=== PATIENT | male | born 1960 | race Caucasian/White ===

== ENCOUNTER 2016-12-08 11:26 | Inpatient (IN) | payer OTHER ==
[~2016-12-08] VITALS: Ht 177.8 cm; Wt 98.6 kg
[~2016-12-08 11:26] MED LIST: ALBUTEROL INHALER; ALEVE LIQUID G220 MG PO; ATORVASTATIN CA20 MG PO; Ascorbic Acid PO; Atrovent HFA Inhaler IH; BACTRIM,SEPT1 TABLET PO; CARVEDILOL6.25 MG PO; CENTRUM SILVER1 EAC3 PO; CLARITIN10 M3 OP; CLEOCIN300 MG PO; Coumadin,Jantoven PO; DULERA 200 MCG/13 GM IH; Ecotrin PO; FLOVENT 22120 INHALA IH; FLUOXETINE HCL20 MG PO; FOLIC ACID1 MG PO; FORMULA E400 UNIT PO; Folvite PO; Hibiclens TP; KEFLEX500 MG PO; LASIX40 MG PO; LEVOTHYROXINE25 MCG PO; LISINOPRIL; LISINOPRIL PO; LISINOPRIL20 MG PO; LORATADINE; Levothroid,Synthroid PO; MOTRIN400 M1 PO; NOHOMEMEDS; PROVENTIL HFA6.7 GM IH; Proventil,Ventolin H IH; REXULTI0.25 MG PO; Santyl TP; THERAGRAN1 TABLET PO; THIAMINE,VITAM100 MG PO; TRAMADOL HCL50 MG PO; Tirosint PO; VITAMIN C WIT1000 MG PO; VITAMIN E400 UNIT PO; Vitamin-E PO; WARFARIN PO; ZANTAC150 MG PO; bactrim PO
[2016-12-08 12:09] LABS: EOSINOPHIL COUNT 0.1 K/uL (0-0.3); IMMATURE GRANULOCYTE (%) 0.2 % (0.0-0.7); IMMATURE GRANULOCYTE COUNT 0.2 K/uL; LYMPHOCYTE COUNT 1.5 K/uL (1.0-2.8); MCH 31.5 PG (29.0-34.0); MCHC 32.6 G/DL (30.0-36.0); MCV 96.4 FL (86-99); MONOCYTE (%) 8.3 % (3-12); MONOCYTE COUNT 0.7 K/uL (0-0.8); NEUTROPHIL (%) 73.7 % (45-76); NEUTROPHIL COUNT 6.5 K/uL (1.8-6.4); PLATELET COUNT 216 K/uL (156-360); RED BLOOD COUNT 3.94 M/uL (4.00-5.50); WHITE BLOOD COUNT 8.8 K/uL (4.1-10.2)
[2016-12-08 12:18] LABS: CHLORIDE 107 mEq/L (99-109)
[2016-12-08 12:19] LABS: SODIUM 139 mEq/L (136-147)
[2016-12-08 12:21] LABS: GLUCOSE 103 mg/dL (70-99)
[2016-12-08 12:22] LABS: ANION GAP 9 MEQ/L (2-14)
[2016-12-08 12:23] LABS: TOTAL BILIRUBIN 1.9 mg/dL (0.0-1.0)
[2016-12-08 12:24] LABS: ALKALINE PHOSPHATASE 115 IU/L (3-129); GFR ESTIMATE (CALCULATED) > 59 mL/min/
[2016-12-08 12:26] LABS: UREA NITROGEN (BUN) 9 mg/dL (9-23)
[2016-12-08 13:06] LABS: TROP-I INTERPRETATION NEGATIVE; TROPONIN-I 0.04 ng/mL (0.0-0.30)
[2016-12-08 13:54] LABS: TROP-I INTERPRETATION NEGATIVE; TROPONIN-I 0.05 ng/mL (0.0-0.30)
[2016-12-08 16:19] LABS: ADD MIUA? NO; BILIRUBIN NEGATIVE; BLOOD NEGATIVE; COLOR YELLOW ((YELLOW)); GLUCOSE (STRIP) NEGATIVE; KETONES NEGATIVE; LEUKOCYTES NEGATIVE; NITRITE NEGATIVE; PROTEIN (STRIP) NEGATIVE; SPECIFIC GRAVITY 1.009 (1.000-1.030); UCUL ADDED? NO; UROBILINOGEN 0.2 MG/DL (0.2-1.0)
[2016-12-08] MEDS ORDERED: ALEVE220 MG PO (17:03)
[2016-12-08] MEDS ORDERED: B POLLEN PO (17:07)
[2016-12-08] MEDS ORDERED: VITAMIN C WIT1000 MG PO (17:09)
[2016-12-08] MEDS ORDERED: IMODIUM A-D2 M2 PO (17:10)
[2016-12-08] MEDS ORDERED: VITAMIN E400 UNIT PO (17:11)
[2016-12-08] MEDS ORDERED: [UNRECOGNIZED DRUG - CODE] PO (17:12)
[2016-12-08] MEDS ORDERED: CENTRUM COMPLE1 EACH PO (17:12)
[2016-12-08] MEDS ORDERED: [UNRECOGNIZED DRUG - OTHER] PO (17:14)
[2016-12-08] MEDS ORDERED: ZANTAC150 MG PO (17:14)
[2016-12-08] MEDS ORDERED: MUCINEX1200 MG PO (17:15)
[2016-12-08] MEDS ORDERED: HALLS7.5 MG MM (17:16)
[2016-12-08] MEDS ORDERED: DULERA 200 MCG/13 GM IH (17:17)
[2016-12-08] MEDS ORDERED: VENTOLIN HFA18 GM IH (17:17)
[2016-12-08 20:28] VITALS: BP 138/89
[2016-12-08 20:33] LABS: TROP-I INTERPRETATION NEGATIVE; TROPONIN-I 0.04 ng/mL (0.0-0.30)
[2016-12-09] VITALS: BP 153/93
[2016-12-09 02:45] LABS: TROP-I INTERPRETATION NEGATIVE; TROPONIN-I 0.05 ng/mL (0.0-0.30)
[2016-12-09 04:00] VITALS: BP 149/97
[2016-12-09 04:18] LABS: METH RESISTANT S AUREUS PCR NEGATIVE (NEGATIVE)
[2016-12-09 04:20] LABS: PROBE CHECK PASS; SPECIMEN PROCESSING CONTROL PASS
[2016-12-09 07:15] LABS: Estimated Average Glucose 94 mg/dL (70-123); HEMOGLOBIN A1c (GLYCOHEMOGLOB) 4.9 % HGB (Below 5.7)
[2016-12-09 07:33] LABS: ANION GAP 9 MEQ/L (2-14); CHLORIDE 103 MEQ/L (99-109); GFR ESTIMATE (CALCULATED) > 59 mL/min/; GLUCOSE 90 mg/dL (70-99); HDL CHOLESTEROL 20 MG/DL (Desirable>=40); LDL CHOLESTEROL 70 mg/dL (Desirable<100); NON-HDL CHOLESTEROL 94 mg/dL (Desirable<160); POTASSIUM 3.5 MEQ/L (3.7-5.4); SAMPLE HEMOLYSIS CHECK 0; SAMPLE ICTERIC CHECK 0; SAMPLE LIPEMIA CHECK 0; SODIUM 138 MEQ/L (136-147); TOTAL CHOLESTEROL 114 mg/dL (Desirable<200); TRIGLYCERIDES 118 MG/DL (Normal: <150); UREA NITROGEN (BUN) 14 mg/dL (9-23)
[2016-12-09] MEDS ORDERED: PROTONIX40 MG PO (07:59)
[2016-12-09 09:00] VITALS: BP 168/106
[2016-12-09 12:14] VITALS: BP 134/98
[2016-12-09 20:00] VITALS: BP 120/82
[2016-12-09 23:34] VITALS: BP 137/60
[2016-12-10] VITALS (7 sets, daily range): BP systolic 114–134; BP diastolic 62–92
[2016-12-10 10:57] LABS: ANION GAP 7 MEQ/L (2-14); CHLORIDE 101 MEQ/L (99-109); SAMPLE HEMOLYSIS CHECK 0; SAMPLE ICTERIC CHECK 0; SAMPLE LIPEMIA CHECK 0; SODIUM 136 MEQ/L (136-147)
[2016-12-10 10:58] LABS: POTASSIUM 4.6 MEQ/L (3.7-5.4)
[2016-12-10 11:05] LABS: GFR ESTIMATE (CALCULATED) > 59 mL/min/; GLUCOSE 110 mg/dL (70-99); UREA NITROGEN (BUN) 18 mg/dL (9-23)
[2016-12-11 03:03] VITALS: BP 140/64
[2016-12-11 06:07] LABS: HEMATOCRIT 41.1 % (38.0-50.0); MCH 31.3 PG (29.0-34.0); MCHC 31.6 G/DL (30.0-36.0); MEAN PLAT.VOLUME 11.8 uM^3 (9.0-12.4); PLATELET COUNT 245 K/uL (156-360); RBC DIS.WIDTH-CV 14.9 % (11.8-14.6); RBC DIS.WIDTH-SD 53.9 % (39-53); RED BLOOD COUNT 4.15 M/uL (4.00-5.50); WHITE BLOOD COUNT 9.5 K/uL (4.1-10.2)
[2016-12-11 06:28] LABS: ANION GAP 8 MEQ/L (2-14); CHLORIDE 100 MEQ/L (99-109); GFR ESTIMATE (CALCULATED) > 59 mL/min/; GLUCOSE 104 mg/dL (70-99); MAGNESIUM 2.1 mg/dl (1.3-2.7); POTASSIUM 4.8 MEQ/L (3.7-5.4); SAMPLE HEMOLYSIS CHECK 0; SAMPLE ICTERIC CHECK 0; SAMPLE LIPEMIA CHECK 0; SODIUM 136 MEQ/L (136-147); UREA NITROGEN (BUN) 24 mg/dL (9-23)
[2016-12-11 07:55] VITALS: BP 140/98
[2016-12-11] MEDS ORDERED: DULERA 100 MCG/13 GM IH (08:23)
[2016-12-11 11:51] VITALS: BP 136/82
[2016-12-11 16:14] VITALS: BP 127/87
[2016-12-11 20:21] VITALS: BP 124/82
[2016-12-12 00:12] VITALS: BP 132/89
[2016-12-12 04:42] VITALS: BP 128/84
[2016-12-12 07:33] LABS: ANION GAP 8 MEQ/L (2-14); CHLORIDE 97 MEQ/L (99-109); GFR ESTIMATE (CALCULATED) > 59 mL/min/; GLUCOSE 88 mg/dL (70-99); POTASSIUM 4.3 MEQ/L (3.7-5.4); SAMPLE HEMOLYSIS CHECK 0; SAMPLE ICTERIC CHECK 0; SAMPLE LIPEMIA CHECK 0; SODIUM 135 MEQ/L (136-147); UREA NITROGEN (BUN) 23 mg/dL (9-23)
[2016-12-12 07:36] VITALS: BP 132/88
[2016-12-12] MEDS ORDERED: CARVEDILOL6.25 MG PO (12:31)
[2016-12-12] MEDS ORDERED: LOSARTAN POTASS50 MG PO (12:31)
[2016-12-12] MEDS ORDERED: FUROSEMIDE20 MG PO (12:38)
[2016-12-12] MEDS ORDERED: LASIX20 MG PO (12:48)
== END 2016-12-12 14:48 | disposition home health service (06) | DRG 292 ==
LOC: EME 11:26 → EDOF 16:16 → 5WEST 16:16 → EDOF 16:16 → 5WEST 19:27 → 4SOUTH 12-09 12:36
PROVIDERS: Emergency Medicine; Internal Medicine; Physician Assistant; Student in an Organized Health Care Education/Training Program
DX: I50.23 Acute on chronic systolic (congestive) heart failure (principal); I42.0 Dilated cardiomyopathy; I47.2 Ventricular tachycardia; I11.0 Hypertensive heart disease with heart failure; J45.909 Unspecified asthma, uncomplicated; Z91.128 Patient's intentional underdosing of medication regimen for other reason; E73.8 Other lactose intolerance; I44.7 Left bundle-branch block, unspecified; J98.4 Other disorders of lung; R09.89 Other specified symptoms and signs involving the circulatory and respiratory systems; G47.33 Obstructive sleep apnea (adult) (pediatric); F60.9 Personality disorder, unspecified; Z60.2 Problems related to living alone; F39 Unspecified mood [affective] disorder; I27.2 Other secondary pulmonary hypertension; I34.0 Nonrheumatic mitral (valve) insufficiency; I36.1 Nonrheumatic tricuspid (valve) insufficiency; E66.9 Obesity, unspecified; Z68.33 Body mass index [BMI] 33.0-33.9, adult; Z86.711 Personal history of pulmonary embolism; Z80.3 Family history of malignant neoplasm of breast; Z80.7 Family history of other malignant neoplasms of lymphoid, hematopoietic and related tissues; Z80.42 Family history of malignant neoplasm of prostate
CPT/HCPCS: 71020; 76705; 80048; 80053; 80061; 81003; 83036; 83735; 83880; 84439; 84443; 84484; 85025; 85027; 87641; 93005; 93306; 94640; 94640 76; 99202; 99281; 99285; G0378; J1650; J1940

== ENCOUNTER 2017-01-06 09:31 | Emergency (ER) | payer OTHER ==
[~2017-01-06] VITALS: Ht 177.8 cm; Wt 100.3 kg
[~2017-01-06 09:31] MED LIST changes: +ALEVE220 MG PO; +B POLLEN PO; +CENTRUM COMPLE1 EACH PO; +DULERA 100 MCG/13 GM IH; +FUROSEMIDE20 MG PO; +HALLS7.5 MG MM; +IMODIUM A-D2 M2 PO; +LASIX20 MG PO; +LOSARTAN POTASS50 MG PO; +MUCINEX1200 MG PO; +PROTONIX40 MG PO; +VENTOLIN HFA18 GM IH; +[UNRECOGNIZED DRUG - CODE] PO; +[UNRECOGNIZED DRUG - OTHER] PO
[2017-01-06 11:01] LABS: HEMATOCRIT 38.6 % (38.0-50.0); MCH 29.8 PG (29.0-34.0); MCHC 31.6 G/DL (30.0-36.0); MEAN PLAT.VOLUME 11.8 uM^3 (9.0-12.4); PLATELET COUNT 178 K/uL (156-360); RBC DIS.WIDTH-SD 47.8 % (39-53); WHITE BLOOD COUNT 8.5 K/uL (4.1-10.2)
[2017-01-06 11:02] LABS: MCV 94.1 FL (86-99)
[2017-01-06 11:10] LABS: CHLORIDE 105 mEq/L (99-109); POTASSIUM 4.2 mEq/L (3.7-5.4); SODIUM 139 mEq/L (136-147)
[2017-01-06 11:12] LABS: GLUCOSE 98 mg/dL (70-99)
[2017-01-06 11:13] LABS: ANION GAP 11 MEQ/L (2-14)
[2017-01-06 11:16] LABS: GFR ESTIMATE (CALCULATED) > 59 mL/min/; UREA NITROGEN (BUN) 7 mg/dL (9-23)
[2017-01-06 11:23] LABS: TROP-I INTERPRETATION NEGATIVE; TROPONIN-I 0.02 ng/mL (0.0-0.30)
[2017-01-06 13:26] LABS: TROP-I INTERPRETATION NEGATIVE; TROPONIN-I 0.03 ng/mL (0.0-0.30)
[2017-01-06 14:13] VITALS: BP 161/91
== END 2017-01-06 14:15 | disposition home or self-care (01) ==
LOC: EME → EDBD 09:31 → EME 14:15
PROVIDERS: Nurse Practitioner Family
DX: J44.1 Chronic obstructive pulmonary disease with (acute) exacerbation (principal); G47.00 Insomnia, unspecified; I10 Essential (primary) hypertension; Z86.711 Personal history of pulmonary embolism
CPT/HCPCS: 71020; 80048; 83880; 84484; 85027; 93005; 99281; 99283